=== PATIENT | male | born 2000 | race Asian ===

== ENCOUNTER 2024-01-15 02:33 | Emergency (ER) | payer OTHER ==
[2024-01-15] MEDS ORDERED: Naproxen 500 MG TAB ONE (04:08)
== END 2024-01-15 04:15 | disposition home or self-care (01) ==
LOC: CSHERS 02:33
DX: S61.234A Puncture wound without foreign body of right ring finger without damage to nail, initial encounter (principal); V48.5XXA Car driver injured in noncollision transport accident in traffic accident, initial encounter
CPT/HCPCS: 99284